=== PATIENT | female | born 2000 | race Two or more races ===

== ENCOUNTER 2022-10-21 17:47 | Emergency (ER) | payer SELFPAY ==
[~2022-10-21] VITALS: Ht 162.6 cm; Wt 59.0 kg
--- NOTE | 2022-10-21 19:45 | NUR ---
RECEIVED PT BEING TRANSFERRED FROM ROOM 16 TO ROOM 4. PT WAS SEEN EARLIER WITH CC OF RLQ PAIN SINCE YESTERDAY ASSOC. W/ NAUSEA AND VOMITING. PATIENT IS ATTACHED TO MONITOR. [id number]. ABLE TO MAKE NEEDS KNOWN.
[2022-10-21] MEDS ORDERED: CHLORDIAZEPOXIDE HCL 25 MG CAPSULE PO ONE (20:00)
[2022-10-21] MEDS ORDERED: KETOROLAC TROMETHAMINE INJ 30 MG/ML VIAL IV ONE (20:00)
[2022-10-21] MEDS ORDERED: ONDANSETRON HCL/PF 4 MG/2 ML VIAL IVP ONE (20:00)
[2022-10-21] MEDS ORDERED: IV NS 0.9% 1,000 ML BAG IV ONE (20:00)
[2022-10-21] MEDS ORDERED: LORAZEPAM INJ 2 MG/ML VIAL IV ONE (20:00)
[2022-10-21] MEDS ORDERED: ONDANSETRON HCL/PF 4 MG/2 ML VIAL ONE (20:07)
[2022-10-21] MEDS ORDERED: KETOROLAC TROMETHAMINE 15 MG/ML VIAL ONE (20:07)
[2022-10-21] MEDS ORDERED: CHLORDIAZEPOXIDE HCL 25 MG CAPSULE ONE (20:08)
[2022-10-21] MEDS ORDERED: LORAZEPAM INJ 2 MG/ML VIAL ONE (20:08)
[2022-10-21 20:15] LABS: BASOPHILS # (AUTO) 0.1 K/uL (0.0-0.2); BASOPHILS % (AUTO) 0.3 % (0.0-2.0); HEMATOCRIT 43 % (33-45); HEMOGLOBIN 14.1 g/dL (11.5-14.8); LYMPHOCYTES # (AUTO) 0.6 K/uL (0.8-4.8); MEAN CORPUSCULAR HGB CONC 33 g/dl (31.0-36.0); MEAN CORPUSCULAR VOLUME 90 fL (82-100); MONOCYTES # (AUTO) 0.7 K/uL (0.1-1.30); MONOCYTES % (AUTO) 3.4 % (2.0-12.0); NEUTROPHILS # (AUTO) 18.9 K/uL (1.8-8.9); NEUTROPHILS % (AUTO) 93.3 % (43.0-81.0); PLATELET COUNT (AUTO) 336 K/uL (150-450); RED BLOOD CELL COUNT(AUTO) 4.75 MIL/uL (4.0-5.2); WHITE BLOOD COUNT (AUTO) 20.3 K/uL (4.3-11.0)
--- NOTE | 2022-10-21 20:30 | NUR ---
URINE SPECIMEN SENT TO LAB
[2022-10-21 20:31] LABS: ALBUMIN 4.3 g/dL (3.4-5.0); BILIRUBIN,DIRECT 0.5 mg/dL (0.0-0.2); BILIRUBIN,TOTAL 1.8 mg/dL (0.2-1.0); CALCIUM, SERUM 9.7 mg/dL (8.5-10.1); CREATININE 0.6 mg/dL (0.6-1.3); POTASSIUM 4.2 mmol/L (3.5-5.1); TOTAL PROTEIN, SERUM 8.3 g/dL (6.4-8.2)
[2022-10-21 20:32] LABS: BILIRUBIN,URINE NEGATIVE (NEGATIVE); COLOR,URINE YELLOW (YELLOW); LEUKOCYTE ESTERASE ,URINE NEGATIVE (NEGATIVE); NITRITE, URINE POSITIVE (NEGATIVE); PROTEIN,URINE 3+ mg/dl (NEGATIVE); UGLUCOSE NEGATIVE (NEGATIVE)
[2022-10-21 20:38] LABS: LYMPHOCYTES % (MANUAL) 2 % (16-48); MONOCYTES % (MANUAL) 2 % (0-11.0); NEUTROPHILS % (MANUAL) 96 (42-76)
[2022-10-21 20:44] LABS: BACTERIA,URINE 2+ /HPF (None Seen); MUCUS,URINE Moderate /LPF (None Seen)
[2022-10-21] MEDS ORDERED: CEFTRIAXONE 1GM BAG (ER ONLY) 50 ML IV ONE (20:51)
[2022-10-21] MEDS ORDERED: CEFTRIAXONE 1GM BAG (ER ONLY) 1 GM/50 ML PIGGYBACK IV ONE (21:00)
[2022-10-21] MEDS ORDERED: CHLO25CA22 PO (22:05)
[2022-10-21] MEDS ORDERED: CEFU500T66 PO (22:05)
[2022-10-21] MEDS ORDERED: ONDA4TAB5 PO (22:05)
--- NOTE | 2022-10-21 22:30 | NUR ---
IV CARLY REMOVED
--- NOTE | 2022-10-21 22:43 | NUR ---
Patient discharged to home in stable condition. Written and verbal after care instructions given. Patient verbalizes understanding of instruction.
[2022-10-21 23:05] VITALS: BP 122/96
== END 2022-10-21 23:05 | disposition home or self-care (01) ==
LOC: ER 18:10
DX: N12 Tubulo-interstitial nephritis, not specified as acute or chronic (principal); E86.0 Dehydration; R11.2 Nausea with vomiting, unspecified; F10.239 Alcohol dependence with withdrawal, unspecified; E80.4 Gilbert syndrome; D72.829 Elevated white blood cell count, unspecified; F17.200 Nicotine dependence, unspecified, uncomplicated; Z79.899 Other long term (current) drug therapy; Y90.9 Presence of alcohol in blood, level not specified
CPT/HCPCS: 99284; 96365; 96375; 85025; 80048; 87086; 83690; 80076; 84703; 81001; 36415; 85007; J2060; J2405; J0696; J1885